=== PATIENT | female | born 1995 | race Hispanic/Latino ===

== ENCOUNTER 2016-11-29 10:01 | Outpatient (CLI) | payer BC, OTHER ==
[2016-11-29 10:42] VITALS: BP 110/69
[2016-11-29] MEDS ORDERED: LACTATED RINGERS 500 ML IV ONE (11:44)
[2016-11-29 12:22] LABS: Bacteria,Urine 2+ /HPF (Negative); Bilirubin,Urine NEG (Negative); Blood,Urine LG (Negative); Ketones,Urine NEG (Negative); Leukocyte Esterase,Urine LG (Negative); Mucus,Urine FEW /HPF; Nitrite,Urine NEG (Negative); Protein,Urine <15 mg/dL mg/dL (Negative); Urobilinogen,Urine < 2.0 mg/dL (<2.0)
== END 2016-11-29 12:40 | disposition home or self-care (01) ==
LOC: TRG 10:01
PROVIDERS: ATTEND Obstetrics & Gynecology
DX: O47.03 False labor before 37 completed weeks of gestation, third trimester (principal); Z3A.33 33 weeks gestation of pregnancy; Z87.891 Personal history of nicotine dependence
CPT/HCPCS: 59025; 81001; 96360; J7120

== ENCOUNTER 2017-01-11 22:15 | Inpatient (IN) | payer BC, OTHER ==
[2017-01-11] MEDS ORDERED: MINERAL OIL PO PRN (23:22)
[2017-01-11] MEDS ORDERED: ePHEDrine SULFATE IV PRN (23:22)
[2017-01-11] MEDS ORDERED: STADOL IV PRN (23:22)
[2017-01-11] MEDS ORDERED: ZOFRAN IV PRN (23:22)
[2017-01-11] MEDS ORDERED: SUBLIMAZE IV PRN (23:22)
[2017-01-11] MEDS ORDERED: BRETHINE SUB-Q PRN (23:22)
[2017-01-11] MEDS ORDERED: XYLOCAINE 2% INFILTRATI ONE (23:22)
--- NOTE | 2017-01-11 23:22 | History and Physical Report ---
History of Present Illness Date of examination: 01/11/17 Chief complaint: labor contractions History of present illness: EDC Confirmation: 01/15/2017 Past History : 1 Term Births: 0 Premature Births: 0 Living Children: 0 Para: 0 Mult. Births: 0 Prev : 0 Prev. attempt? 0 Aborta: 0 Elect. Ab: 0 Spont. 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 of genital herpes: no Partner hx. of genital herpes: no Rash, Viral, or Febrile illness since last LMP? no Varicella/Chicken Pox Status: Previous Disease TB Risk: no Genetic History Congenital Heart Defect: Mom: no Dad: no Fide Disease: Mom: no Dad: no Thalassemia Mom: no Dad: no Neural Tube Defect Mom: no Dad: no Down's Syndrome Mom: no Dad: no Ok-Sachs Mom: no Dad: no Sickle Cell Disease/Trait Mom: no Dad: no Hemophilia Mom: no Dad: no Muscular Dystrophy Mom: no Dad: no Cystic Fibrosis Mom: yes Dad: unknown Comments: Pt is a CF carrier, FOC to be tested [place] Chorea Mom: no Dad: no Mental Retardation Mom: no Dad: no Fragile X Mom: no Dad: no Other Genetic/Chromosomal Disorder Mom: no Dad: no Child w/other defect Mom: no Dad: no Enviromental Exposures Xray Exposure: no Medication, drug, or alcohol use since LMP: no Chemical/Other Exposure: no Exposure to Cat Liter: no Hx of Parvovirus (Fifth Disease): no Occupational Exposure to Children: none Active Medications (reviewed today): None Current Allergies (reviewed today): No known allergies Past History Past Medical History: no pertinent history - Obstetrical History Expected Date of Delivery: 01/15/17 Actual Gestation: 39 Week(s) 3 Day(s) : 1 Para: 0 Hx # Term Pregnancies: 0 Number of Pregnancies: 0 Spontaneous Abortions: 0 Induced : 0 Number of Living Children: 0 Medications and Allergies Allergies Allergy/AdvReac Type Severity Reaction Status Date / Time No Known Allergies Allergy Unverified 11/29/16 11:44 Review of Systems All systems: negative - Vital Signs Vital signs: Vital Signs Pulse BP Pulse Ox 68 129/81 98 01/11/17 22:34 01/11/17 22:34 01/11/17 22:34 Temp Pulse Resp BP Pulse Ox 84 129/81 98 01/11/17 23:19 01/11/17 22:34 01/11/17 23:19 - Physical Exam Breasts: Positive: normal Cardiovascular: Regular rate Lungs: Positive: Clear to auscultation, Normal air movement Abdomen: Positive: normal appearance, soft Genitourinary (Female): Positive: normal external genitalia, normal perenium Vulva: both: normal Vagina: Positive: normal moisture Uterus: Positive: normal size, normal contour Anus/Rectum: Positive: normal perianal skin Extremities: Positive: normal Deep Tendon Reflex Grade: Normal +2 - Obstetrical FHR: auscultation normal, category 1 Uterine Contraction Monitor Mode: External Cervical Dilatation: 4 Cervical Effacement Percentage: 100 station: -1 Uterine Contraction Frequency (min): 4-5 Uterine Contraction Duration: 60-90 Uterine Contraction Pattern: Regular Uterine Tone Measurement Phase: Contraction Uterine Contraction Intensity: Moderate Results All other labs normal. Assessment and Plan 21 y/o @ 39+3 in active labor. GBS NEG. Admission orders in EMR, anticipate . 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
[2017-01-11] MEDS ORDERED: PITOCin/NS 30 UNIT/500ML 30 UNITS/500 ML BAG IV SCH (23:45)
[2017-01-11] MEDS ORDERED: LACTATED RINGERS 1,000 ML IV SCH (23:45)
[2017-01-11] MEDS ORDERED: PITOCin/NS 20 UNIT/1000ML DRIP 20 UNITS/1,000 ML BAG IV SCH (23:45)
[2017-01-11 23:52] LABS: Hematocrit 42.7 % (30.3-42.9); Hemoglobin 14.4 gm/dl (10.1-14.3); Mean Corpuscular HGB Conc 34 % (30-34); Mean Corpuscular Hemoglobin 31 pg (28-32); Mean Corpuscular Volume 91 fl (79-97); Platelet Count 239 K/mm3 (140-440); Red Cell Distribution Width 14.6 % (13.2-15.2); White Blood Count 15.9 K/mm3 (4.5-11.0)
[2017-01-12] MEDS ORDERED: ePHEDrine SULFATE ONE (00:28)
--- NOTE | 2017-01-12 00:49 | Progress Note ---
Assessment and Plan patient comfortable s/p epidural, AROM clear/blood tinged fluid. Anticipate . 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 Births: 0 Prev : 0 Prev. attempt? 0 Aborta: 0 Elect. Ab: 0 Spont. 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 denies ETOH or drugs Infection History Hx of STD: chlamydia HIV Risk Eval: no Hepatitis B Risk Eval: low risk Personal hx. of genital herpes: no Partner hx. of genital herpes: no Rash, Viral, or Febrile illness since last LMP? no Varicella/Chicken Pox Status: Previous Disease TB Risk: no Genetic History Congenital Heart Defect: Mom: no Dad: no Fide Disease: Mom: no Dad: no Thalassemia Mom: no Dad: no Neural Tube Defect Mom: no Dad: no Down's Syndrome Mom: no Dad: no Ok-Sachs Mom: no Dad: no Sickle Cell Disease/Trait Mom: no Dad: no Hemophilia Mom: no Dad: no Muscular Dystrophy Mom: no Dad: no Cystic Fibrosis Mom: yes Dad: unknown Comments: Pt is a CF carrier, FOC to be tested [place] Chorea Mom: no Dad: no Mental Retardation Mom: no Dad: no Fragile X Mom: no Dad: no Other Genetic/Chromosomal Disorder Mom: no Dad: no Child w/other defect Mom: no Dad: no Enviromental Exposures Xray Exposure: no Medication, drug, or alcohol use since LMP: no Chemical/Other Exposure: no Exposure to Cat Liter: no Hx of Parvovirus (Fifth Disease): no Occupational Exposure to Children: none Active Medications (reviewed today): None Current Allergies (reviewed today): No known allergies Patient reports: other (Comfortable with epidural), no new complaints Objective - Vital Signs Vital Signs: Vital Signs - 12hr 01/11/17 01/11/17 01/11/17 22:34 22:36 22:41 Pulse Rate 68 70 70 Blood Pressure 129/81 O2 Sat by Pulse 98 93 97 Oximetry 01/11/17 01/11/17 01/11/17 22:42 22:44 22:45 Pulse Rate 64 82 63 Blood Pressure O2 Sat by Pulse 98 99 99 Oximetry 01/11/17 01/11/17 01/11/17 22:46 22:48 22:49 Pulse Rate 71 66 202 H Blood Pressure O2 Sat by Pulse 96 98 82 L Oximetry 01/11/17 01/11/17 01/11/17 22:50 22:51 22:52 Pulse Rate 83 57 L 112 H Blood Pressure O2 Sat by Pulse 99 75 L 83 L Oximetry 01/11/17 01/11/17 01/11/17 22:54 22:55 22:59 Pulse Rate 66 88 82 Blood Pressure O2 Sat by Pulse 98 99 97 Oximetry 01/11/17 01/11/17 01/11/17 23:03 23:05 23:06 Pulse Rate 75 72 79 Blood Pressure O2 Sat by Pulse 85 99 99 Oximetry 01/11/17 01/11/17 01/11/17 23:07 23:11 23:12 Pulse Rate 68 87 67 Blood Pressure O2 Sat by Pulse 99 83 L 99 Oximetry 01/11/17 01/11/17 01/11/17 23:17 23:19 23:22 Pulse Rate 68 84 62 Blood Pressure O2 Sat by Pulse 99 98 96 Oximetry 01/11/17 01/11/17 01/11/17 23:23 23:24 23:27 Pulse Rate 265 H 121 H 98 H Blood Pressure O2 Sat by Pulse 76 L 57 L 97 Oximetry 01/11/17 01/11/17 01/11/17 23:28 23:29 23:30 Pulse Rate 94 H 84 81 Blood Pressure O2 Sat by Pulse 99 82 L 84 Oximetry 01/11/17 01/11/17 01/11/17 23:31 23:32 23:34 Pulse Rate 100 H 127 H 70 Blood Pressure O2 Sat by Pulse 83 L 78 L 82 L Oximetry 01/12/17 01/12/17 01/12/17 00:21 00:41 00:43 Pulse Rate 68 76 71 Blood Pressure 117/67 186/112 O2 Sat by Pulse 88 Oximetry 01/12/17 01/12/17 01/12/17 00:46 00:47 00:48 Pulse Rate 71 71 86 Blood Pressure 96/52 107/50 O2 Sat by Pulse 99 Oximetry - Exam Breasts: normal Cardiovascular: Regular rate Lungs: Clear to auscultation, Normal air movement Abdomen: Present: normal appearance, soft, normal bowel sounds Vulva: both: normal Uterus: Present: normal FHR: auscultation normal Uterine Contraction Monitor Mode: External Cervical Dilatation: 6.5 Cervical Effacement Percentage: 100 station: -1 Uterine Contraction Frequency (min): 3-4 Uterine Contraction Duration: 60 Uterine Contraction Pattern: Regular Uterine Tone Measurement Phase: Contraction Uterine Contraction Intensity: Moderate Extremities: normal - Labs Labs: Abnormal Labs 01/11/17 23:35 WBC 15.9 H Hgb 14.4 H Laboratory Results - last 24 hr 01/11/17 01/11/17 23:35 23:35 WBC 15.9 H RBC 4.70 Hgb 14.4 H Hct 42.7 MCV 91 MCH 31 MCHC 34 RDW 14.6 Plt Count 239 Blood Type O POSITIVE
[2017-01-12] MEDS ORDERED: fentaNYL-BUPIV 2 MCG/ML-0.125% 200 MCG/100 ML BAG EPIDURAL ONE ×2 (01:16→01:17)
--- NOTE | 2017-01-12 04:43 | Procedure Note ---
OB Delivery Note - Delivery Date of Delivery: 01/12/17 ( female) Base Remover: STEPHANIA TROY Estimated blood loss: 300cc - Vaginal Delivery presentation: vertex Delivery position: OA Intrapartum events: none Delivery induction: none Delivery augmentation: rupture of membranes Delivery monitor: external FHT, external uterine Route of delivery: Delivery placenta: spontaneous Delivery cord: nuchal cord, 3 umbilical vessels Episiotomy: none Delivery laceration: none Anesthesia: epidural Delivery comments: female infant delivered intact perineum, NC x 1 somersaulted through. Infant placed skin to skin on mother's abdomen, 3 vessel cord clamped and cut. cord blood collected. placenta del intact and complete. no laceration to repair. EBL 300, wt 7#6, apgars 8/9. mother and infant remain LDR stable. - A at 1 minute: 8 at 5 minutes: 9 Infant Gender: Female (7#6)
[2017-01-12] MEDS ORDERED: PITOCin/NS 20 UNIT/1000ML DRIP 20 UNITS/1,000 ML BAG IV SCH (06:35)
[2017-01-12] MEDS ORDERED: PHENERGAN PO PRN (06:35)
[2017-01-12] MEDS ORDERED: BENADRYL PO PRN (06:35)
[2017-01-12] MEDS ORDERED: SODIUM CHLORIDE FLUSH SYRINGE 10 ML IV NR (06:35)
[2017-01-12] MEDS ORDERED: TYLENOL PO PRN (06:35)
[2017-01-12] MEDS ORDERED: TUCKS PAD TP PRN (06:35)
[2017-01-12] MEDS ORDERED: LANSINOH TP PRN (06:35)
[2017-01-12] MEDS: NORCO 5/325 PO PRN ×2 (08:59→19:05)
[2017-01-12] MEDS ORDERED: PRENATAL VITAMIN PO SCH (10:00)
[2017-01-12] MEDS ORDERED: DULCOLAX PR PRN (10:00)
[2017-01-12] MEDS: MOTRIN PO SCH ×3 (12:46→23:48)
[2017-01-12 17:33] LABS: Hematocrit 36.5 % (30.3-42.9); Hemoglobin 12.2 gm/dl (10.1-14.3)
[2017-01-12] MEDS: COLACE PO SCH (21:10)
[2017-01-12] MEDS ORDERED: MILK OF MAGNESIA PO PRN (22:00)
[2017-01-13] MEDS ORDERED: BOOSTRIX IM ONE (00:21)
[2017-01-13] MEDS: MOTRIN PO SCH ×3 (05:18→18:46)
[2017-01-13] MEDS: NORCO 5/325 PO PRN (05:19)
[2017-01-13] MEDS: COLACE PO SCH (09:49)
--- NOTE | 2017-01-13 11:10 | Discharge Summary ---
Providers - Providers Date of Admission: 01/11/17 23:41 Date of discharge: 01/13/17 Attending physician: LUCINDA TEJEDA 01/12/17 06:35 Consult to [employer] Department Supervisor [CONS] Routine Reason For Exam: assistance with , SNS Primary care physician: LUCINDA TEJEDA Hospitalization Reason for admission: active labor Delivery: Episiotomy: none Laceration: none Other procedures: none complications: none Discharge diagnosis: IUP at term delivered baby: female Hospital course: Patient was admitted underwent a normal spontaneous vaginal delivery. Her course was benign. She was afebrile throughout her stay. Her day 1 hematocrit was 36.5. Patient is bottlefeeding and uncertain about control Condition at discharge: Good Disposition: DC-01 TO HOME OR SELFCARE - Discharge Diagnoses (1) (normal spontaneous vaginal delivery) Status: Acute Plan - Discharge Medications Prescriptions: Ibuprofen [Motrin 800 MG tab] 800 mg PO Q6H PRN #30 tablet PRN Reason: Pain - Provider Discharge Summary Activity: routine, no sex for 6 weeks, no heavy lifting 4 weeks Diet: routine Instructions: routine Additional instructions: [] Smoking cessation referral if applicable(refer to patient education folder for contact #) [] Refer to [facility] Booklet Call your doctor immediately for: * Fever > 100.5 * Heavy vaginal bleeding ( >1 pad per hour) * Severe persistent headache * Shortness of breath * Reddened, hot, painful area to leg or breast * Drainage or odor from incision. *Patient follow up in office in 4 weeks for visit and contraceptive counseling - Follow up plan Follow up: LUCINDA TEJEDA MD [Primary Care Provider] - 7 Days
--- NOTE | 2017-01-13 18:57 | Progress Note ---
Subjective Date of service: 01/13/17 Principal diagnosis: IUP @ 39 weeks, activelabor Interval history: No anesthetic related complaints. Objective - Constitutional Vitals: Vital Signs - 12hr 01/13/17 01/13/17 01/13/17 08:49 09:03 16:51 Temperature 97.9 F 98.0 F Pulse Rate 74 Respiratory 18 18 Rate Blood Pressure 90/51 90/51 99/64 Blood Pressure 90/51 [Right] - Labs CBC & Chem 7: 01/12/17 16:40
[2017-01-13 23:08] VITALS: BP 106/73
== END 2017-01-13 21:20 | disposition home or self-care (01) | DRG 775 ==
LOC: TRG 22:15 → LD 23:41 → TRG 23:41 → OB 01-12 06:24
PROVIDERS: ADMIT Obstetrics & Gynecology; ATTEND Obstetrics & Gynecology
PROC: 10E0XZZ Delivery of Products of Conception, External Approach (ICD-10-PCS; principal; 2017-01-12)
PROC: 00HU33Z Insertion of Infusion Device into Spinal Canal, Percutaneous Approach (ICD-10-PCS; 2017-01-12)
PROC: 3E0R3CZ (ICD-10-PCS; 2017-01-12)
DX: O69.81X0 Labor and delivery complicated by cord around neck, without compression, not applicable or unspecified (principal); J45.909 Unspecified asthma, uncomplicated; F31.9 Bipolar disorder, unspecified; O99.52 Diseases of the respiratory system complicating childbirth; O99.344 Other mental disorders complicating childbirth; Z3A.39 39 weeks gestation of pregnancy; Z37.0 Single live birth; Z14.1 Cystic fibrosis carrier
CPT/HCPCS: 36415; 85014; 85018; 85027; 86592; 86850; 86900; 86901; 90471; A6250; J2590; J3010; J7120

== ENCOUNTER 2019-06-20 00:12 | Emergency (ER) | payer BC, OTHER | END 2019-06-20 07:15 | disposition left against medical advice (07) | LOC: ED 00:12 | DX: R10.9 Unspecified abdominal pain (principal); Z53.21 Procedure and treatment not carried out due to patient leaving prior to being seen by health care provider ==